=== PATIENT | female | born 1995 ===

== ENCOUNTER 2019-02-15 02:47 | Emergency (ER) | payer SELFPAY ==
[2019-02-15] MEDS ORDERED: SODIUM CHLORIDE 0.9% 1000 ML 1,000 ML IV ONE ×2 (03:45→07:12)
[2019-02-15 04:06] LABS: Hematocrit 46.8 % (30.3-42.9); Hemoglobin 14.7 gm/dl (10.1-14.3); Mean Corpuscular HGB Conc 31 % (30-34); Mean Corpuscular Volume 89 fl (79-97); Platelet Count 362 K/mm3 (140-440); Red Blood Count 5.24 M/mm3 (3.65-5.03); Red Cell Distribution Width 15.5 % (13.2-15.2)
[2019-02-15 04:14] LABS: BUN/Creatinine Ratio 14; Blood Urea Nitrogen 7 mg/dL (7-17); Calcium 8.8 mg/dL (8.4-10.2); Hemolysis Index 15
--- NOTE | 2019-02-15 05:22 | Cat Scan Report ---
CT head/brain wo con INDICATION: headache. TECHNIQUE: All CT scans at this location are performed using the following dose modulation technique: Automated exposure control. CONTRAST: None. COMPARISON: None available. FINDINGS: The ventricular system is appropriate in size and configuration without midline shift. Nega tive for mass, stroke or hemorrhage. The bones and imaged portions of the paranasal sinuses are clear. IMPRESSION: Negative CT brain without contrast. Signer Name: Herber Torrez MD Signed: 02/15/2019 5:18 AM Workstation Name: [id number]
[2019-02-15] MEDS ORDERED: ONDANSETRON 4 MG/2 ML INJ IV ONE (07:12)
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
[2019-02-15 10:23] VITALS: BP 112/65
[2019-02-15] MEDS ORDERED: ONDANSETRON 4 MG ODT TAB PO ONE ×2 (12:07→13:11)
== END 2019-02-15 14:04 | disposition home or self-care (01) ==
LOC: ED 02:47
DX: F10.129 Alcohol abuse with intoxication, unspecified (principal); E87.2 Acidosis; E87.6 Hypokalemia; F31.9 Bipolar disorder, unspecified; J45.909 Unspecified asthma, uncomplicated; F14.10 Cocaine abuse, uncomplicated; F12.10 Cannabis abuse, uncomplicated; Z88.5 Allergy status to narcotic agent
CPT/HCPCS: 36415; 70450; 80048; 84703; 85025; 93005; 93010; 96361; 96374; 99284; J2405; J7030; 80320; G0480; Q0162